=== PATIENT | male | born 1985 | race Caucasian/White ===

== ENCOUNTER 2016-12-22 10:16 | Emergency (ER) | payer OTHER ==
[~2016-12-22 10:16] MED LIST: HEARTBURN MED
== END 2016-12-22 11:20 | disposition home or self-care (01) ==
LOC: SED 10:16
DX: M54.42 Lumbago with sciatica, left side (principal); K21.9 Gastro-esophageal reflux disease without esophagitis; F17.210 Nicotine dependence, cigarettes, uncomplicated
CPT/HCPCS: 96372; 99283; J1885